=== PATIENT | female | born 1955 | race Caucasian/White ===

== ENCOUNTER 2016-06-07 10:19 | Inpatient (IN) | payer OTHER ==
[2016-06-07] VITALS (18 sets, daily range): BP systolic 80–152; BP diastolic 48–79
[~2016-06-07] VITALS: Ht 175.3 cm; Wt 97.5 kg
[~2016-06-07 10:19] MED LIST: ATROPINE 0.5 MG/5 ML DISP.SYRIN. ONE; HEPARIN for IV BOLUS 10,000 UNIT/10 ML VIAL. ONE; IOHEXOL 300 MG/ML 100ML VIAL. ONE; LIDOCAINE 2% 20 ML VIAL. ONE; MIDAZOLAM HCL/PF 2 MG/2 ML VIAL. ONE; NITROGLYCERIN 200 MCG/2 ML SYRINGE FOR CATH/VASC LAB. ONE; VERAPAMIL 5 MG/2 ML VIAL. ONE; fentaNYL PF VIAL 100 MCG/2 ML VIAL ONE
[2016-06-07] MEDS ORDERED: TIROFIBAN IV ONE (11:00)
[2016-06-07] MEDS ORDERED: SODIUM CHLORIDE 5 MG/100 ML IV ONE (11:00)
[2016-06-07] MEDS ORDERED: TIROFIBAN 5MG -0.9% NS 100 ML IV ONE (11:08)
[2016-06-07] MEDS ORDERED: ONDANSETRON PF 4 MG/2 ML VIAL. ONE (11:29)
[2016-06-07] MEDS ORDERED: PRASUGREL 10 MG TABLET. ONE (11:42)
[2016-06-07] MEDS ORDERED: IOHEXOL 300 MG/ML 100ML VIAL. IART ONE (11:45)
[2016-06-07] MEDS ORDERED: fentaNYL PF VIAL 100 MCG/2 ML VIAL IV ONE (11:45)
[2016-06-07] MEDS ORDERED: ONDANSETRON PF 4 MG/2 ML VIAL. IV ONE (11:45)
[2016-06-07] MEDS ORDERED: HEPARIN for IV BOLUS 10,000 UNIT/10 ML VIAL. IART ONE (11:45)
[2016-06-07] MEDS ORDERED: CONTRAST GIVEN MC PRN (11:45)
[2016-06-07] MEDS ORDERED: LIDOCAINE 2% 20 ML VIAL. IJ ONE (11:45)
[2016-06-07] MEDS ORDERED: NITROGLYCERIN 200 MCG/2 ML SYRINGE FOR CATH/VASC LAB. IART ONE (11:45)
[2016-06-07] MEDS ORDERED: PRASUGREL 10 MG TABLET. PO ONE (11:45)
[2016-06-07] MEDS ORDERED: TIROFIBAN 12.5MG -0.9% NS 250 ML IV PRN (11:45)
[2016-06-07] MEDS ORDERED: MIDAZOLAM HCL/PF 2 MG/2 ML VIAL. IV ONE (11:45)
[2016-06-07] MEDS ORDERED: VERAPAMIL 5 MG/2 ML VIAL. IART ONE (11:45)
[2016-06-07] MEDS ORDERED: HEPARIN for IV BOLUS 10,000 UNIT/10 ML VIAL. IV ONE (11:45)
[2016-06-07] MEDS ORDERED: ESCI20TA10 PO (12:41)
[2016-06-07] MEDS ORDERED: ALPR2TAB PO (12:41)
[2016-06-07] MEDS ORDERED: ISOS60TA2 PO (12:41)
[2016-06-07] MEDS ORDERED: ESTR0.5T PO (12:41)
[2016-06-07] MEDS ORDERED: QUET50TA5 PO (12:41)
--- NOTE | 2016-06-07 15:11 | PDOC1 ---
History and Physical Date of Admission Date of Admission 06/07/16 Identification/Chief Complaint Chief Complaint CHEST Pain, throat pain Problems: Source Source: Chart review, Patient History of Present Illness History of Present Illness 60yo F, smoker, was sent from [facility] for STEMI. Pt started to feel intermittent chest pain in the past week, worsening today, as upper chest pain, radiating to bl jaws, with nausea, diaphoresis,sob. In [place] , ekg SHOWED ST elevation at II, III, AVR. sent her her. Pt got emergency Cath, official report pending, as per ICU nurse, pt got 1 stent at OM. pT FEELs ok now, no chest pain. mild cough as her baseline for COPD. on dopamine now with hypotension, could 2/2 nitro drip at the beginning. Past Medical History Pulmonary: COPD Past Surgical History Past Surgical History: No pertinent history Family History Family History: No Significant Social History Smoke: 1 pack per day ALCOHOL: social Drugs: None Current Problem List Problem List Problems Medical Problems: (1) STEMI (ST elevation myocardial infarction) Status: Acute Current Medications Current Medications Current Medications Medications (Trade) Dose Ordered Sig/Lisa Start Time Stop Time Status Last Admin Dose Admin Fentanyl Citrate (Fentanyl 2ml Vial) 25 mcg 1X ONCE 06/07/16 11:45 06/07/16 11:46 DC 06/07/16 11:45 25 MCG Heparin Sodium (Porcine) (Heparin Sodium) 5,000 unit 1X ONCE 06/07/16 11:45 06/07/16 11:46 DC 06/07/16 11:45 5,000 UNIT Heparin Sodium/ Sodium Chloride 1,000 unit 1X ONCE 06/07/16 11:45 06/07/16 11:46 DC 06/07/16 11:45 1,000 UNIT Info (Do NOT chart on this entry -- for MONITORING) 1 each PRN DAILY PRN 06/07/16 11:45 06/09/16 11:44 Iohexol (Omnipaque 300 Mg/ml) 100 ml 1X ONCE 06/07/16 11:45 06/07/16 11:46 DC 06/07/16 11:45 164 ML Lidocaine HCl 20 ml 20 ml 1X ONCE 06/07/16 11:45 06/07/16 11:46 DC 06/07/16 11:45 1 ML Midazolam HCl (Versed) 1 mg 1X ONCE 06/07/16 11:45 06/07/16 11:46 DC 06/07/16 11:45 1 MG Nitroglycerin (Nitroglycerin) 400 mcg 1X ONCE 06/07/16 11:45 06/07/16 11:46 DC 06/07/16 11:45 400 MCG Ondansetron HCl (Zofran) 4 mg 1X ONCE 06/07/16 11:45 06/07/16 11:46 DC 06/07/16 11:45 4 MG Prasugrel (Effient) 60 mg 1X ONCE 06/07/16 11:45 06/07/16 11:46 DC 06/07/16 11:45 60 MG Tirofiban/Sodium Chloride (Aggrastat 12.5 Mg/250 ml Premix) 250 ml @ 0 mls/hr CONT PRN 06/07/16 11:45 06/08/16 05:44 06/07/16 11:13 500 MLS/HR Verapamil HCl (Verapamil) 2.5 mg 1X ONCE 06/07/16 11:45 06/07/16 11:46 DC 06/07/16 11:45 2.5 MG Allergies Allergies Allergies Coded Allergies Type Severity Reaction Last Updated Verified No Known Drug Allergies 06/07/16 No ROS Review of System CONSTITUTIONAL: No fever or chills EYES: No recent changes SKIN: No rash or itching CARDIOVASCULAR: No chest pain, syncope, palpitations, or edema RESPIRATORY: No SOB or cough GASTROINTESTINAL: No nausea, vomiting or abdominal pain NEUROLOGICAL: No headaches or weakness ENDOCRINE: No cold or heat intolerance GENITOURINARY: No urgency or frequency of urination MUSCULOSKELETAL: No back pain or joint pain LYMPHATICS: No enlarged lymph nodes PSYCHIATRIC: No anxiety or depression Physical Exam Physical Exam GEN.: No apparent distress. Alert and oriented. HEENT: Head is normocephalic, atraumatic NECK: Supple. LUNGS: bl mild decreased BS. HEART: RRR, S1, S2 present. Peripheral pulses intact ABDOMEN: Soft, nontender. Positive bowel sounds. EXTREMITIES: Without any cyanosis. NEUROLOGIC: Normal speech, normal tone PSYCHIATRIC: Normal affect, normal mood. SKIN: No ulcerations Vitals Vitals Vital Signs Date Time Temp Pulse Resp B/P Pulse Ox O2 Delivery O2 Flow Rate FiO2 06/07/16 14:30 70 20 97/58 97 Nasal Cannula 4.0 5/1/17 12:15 97.6 97.6 VTE Prophylaxis Ordered VTE Prophylaxis Devices: Yes VTE Pharmacological Prophylaxi: Yes Assessment/Plan Assessment/Plan 1. STEMI, post PCI on 06/07 with 1 STENT in OM 2. copd, stable 3. depression, anxiety 4. tobaccoism plan check tsh, lipid panel fu with card taper dopamine, keep MAP>65 add asa, likely need plavix, defer to card albuterol prn cont [facility] meds icu care for today ABDELRAHMAN HANLEY MD June 07, 2016 15:11
[2016-06-07] MEDS ORDERED: ONDANSETRON PF 4 MG/2 ML VIAL. IV PRN (15:15)
[2016-06-07] MEDS ORDERED: MORPHINE SULFATE 2 MG/ML DISP.SYRIN. IV PRN (15:15)
[2016-06-07] MEDS ORDERED: ACETAMINOPHEN 325 MG TABLET. PO PRN (15:15)
[2016-06-07] MEDS ORDERED: HYDROCODONE/APAP 5/325MG TABLET. PO PRN (15:15)
[2016-06-07] MEDS ORDERED: ALBUTEROL SULFATE 2.5 MG/3 ML NEBU. NEB PRN (15:15)
--- NOTE | 2016-06-07 16:42 | CARD ---
APPROVED REPORT Procedure(s) performed: Right transradial approach Left Heart Catheterization PTCA with Stenting To Circumflex Ptca OM HISTORY The patient is a 60 year-old female with a history of : chronic lung disease, tobacco history() : The patient is a current smoker. INDICATION The indication(s) include : STEMI (>12 hrs to = 24 hrs), 60 y.o woman presented to an OSH with angina , noted to have ODILON on EKG and STEMI protocol activated. . CASE TECHNIQUE During this case, Fluoroscopy and low osmolar contrast were used for imaging. PROCEDURE NARRATIVE The patient was brought electively to the cardiac catheterization lab. A timeout was performed confi rming the patient's name, date of , procedure, and site of procedure. All necessary personnel w ere wearing the appropriate protective equipment and radiation monitor devices. After explaining the risks and benefits of the procedure and alternatives, informed verbal consent was obtained. (See kristy gonzalez notes for medications administered). The right wrist was sterilely prepped and draped in the us ual fashion. The right wrist was infiltrated with 1 mL of 2% lidocaine for subcutaneous anesthesia. A 6 Lao Terumo glide sheath was inserted into the right radial artery without difficulty. Right and left coronary angiography was performed using a 6Fr TIG 4.0 catheter. HEMODYNAMICS: LVEDP 18 mm Hg No gradient on LV to aortic pullback. LEFT VENTRICULOGRAM: EF 55% Anterobasal: Normal. Anterolateral: Normal Apical: Normal Diaphragmatic: Moderate hypokines. Posterobasal: Moderate hypokinesis. CORONARY ANGIOGRAPHY: LM is a large caliber vessel with normal angiographic appearance. LAD is a large caliber vessel with normal angiographic appearance. D1 is a moderate caliber vessel with normal angiographic apeparance. LCx is a moderate caliber co-dominant vessel with a mid occlusion at the site of OM2. OM1 is a moderate caliber vessel with mild luminal irregularities. OM2 is a small to moderate caliber vessel with mild luminal irregularities. RCA is a large caliber co-dominant vessel with mild diffuse irregularities of up to 40% RPDA is a small caliber vessels with normal angiographic appearance. INTERVENTIONAL TECHNIQUE: Based on the presenting symptoms, angiographic findings and EKG changes, an intervention was performe d. Through a 6Fr EBU 3.5 guide catheter, a 0.014'' Prowater wire was advanced to the distal LCx. Ball oon angioplasty was performed with a Trek 2.5/15 mm balloon. Subsequently, a second wire was placed i n the OM2 to protect this vessel from plaque shift. Repeat angioplasty was performed with a Trek 3.0/ 15 mm balloon. Finally, the lesion was stented with a Trek 3.0/28 vision BMS at 14 marcos. The proximal half of the stent was post-dilated with a Trek 3.25mm NC balloon at 16 marcos. Final angiography reveale d excellent stent expansion with OSEAS 3 flow. Left ventricular end diastolic pressure was obtained wi th a pigtail catheter and pullback was performed after left ventriculography. All catheter exchanges and advancements were performed over a guidewire. At case completion the right radial sheath was re moved and a Terumo radial band was applied with 13 ml of air. The patient tolerated the procedure we ll and there were no immediate complications. The patient received Prasugrel 60mg at case completion. Conclusion 1. Infero-posterior STEMI 2. Successful primary PCI of the LCx with implantation of a Vision 3.0/28 mm bare metal stent, post-d ilated to a 3.25mm size proximally in the LCx. 3. Normal LV funtion. EF 55% Recommendations ASA 81mg daily Prasugrel 10mg daily for 1 full month, consider DAPT for 1 full year if tolerated. Cardiac rehab referral High dose statin. Risk factor modification.
[2016-06-07] MEDS ORDERED: LIDO:MAALOX:DONNATAL 1:1:1 15 ML SINGLE DOSE SWSW PRN (17:15)
--- NOTE | 2016-06-07 19:37 | EKG ---
[facility] [address] [place] [address] Test Date: 2016-06-07 Test Time: 19:37:29 Pat Name: BAILEY HERCULES Department: Room: 115 1 Gender: F [employer]: [place] : 1955 Requested By: DMITRY HORVATH Order Number: [id number] Reading MD: Ivania Sierra Measurements Intervals [place] Rate: 88 P: 53 NM: 138 QRS: -46 QRSD: 94 T: -12 QT: 374 QTc: 456 Interpretive Statements SINUS RHYTHM ABNORMAL LEFT AXIS DEVIATION LOW LIMB LEAD VOLTAGE ABNORMAL ECG RI6.01 No previous ECG available for comparison Electronically Signed On 06-08-2016 12:18:19 CDT by Ivania Sierra
[2016-06-07] MEDS: ALPRAZolam 1 MG TABLET PO SCH (20:54)
[2016-06-07] MEDS ORDERED: ESCITALOPRAM 10 MG TABLET. PO SCH (21:00)
[2016-06-07] MEDS ORDERED: QUEtiapine 25 MG TABLET. PO SCH (21:00)
[2016-06-08] VITALS (11 sets, daily range): BP systolic 96–143; BP diastolic 50–85
--- NOTE | 2016-06-08 04:58 | ACF ---
Admission Forms Criteria INTENSIVE CARE UNIT ADMISSION Intensive Care Admission Guidelines ( Place 'X' for any and all applicable criteria): Admission to ICU may be indicated when need is demonstrated by ANY ONE of the following (1)(2)(3)(4)(5)(6)(7)(8)(9) : [X]I. Vital sign abnormalities, including ANY ONE of the following: [ ]a) Systolic arterial pressure less than 90 mm Hg, or 20 mm Hg below the patient's usual pressure [ ]b) Diastolic arterial pressure greater than 120 mm Hg [X]c) Mean arterial pressure less than 70 mm Hg [A] [ ]d) Pulse less than 40 or greater than 140 beats per minute (in adult) [ ]e) Respiratory rate greater than 35 or less than 8 breaths per minute [ ]II. Laboratory findings (new), including ANY ONE of the following (10): [ ]a) Saturation of arterial oxygen less than 88% or partial pressure of oxygen less than 60 mm Hg (8.0 kPa) despite oxygen supplementation [ ]b) Rising partial pressure of carbon dioxide with respiratory acidosis [ ]c) pH less than 7.2 or greater than 7.65 [ ]d) Serum glucose greater than 800 mg/dL (44.4 mmol/L) [ ]e) Serum sodium less than 110 mEq/L (mmol/L) or greater than 160 mEq/L (mmol/L) [ ]f) Serum potassium less than 2 mEq/L (mmol/L) or greater than 7 mEq /L (mmol/L) [ ]g) Serum calcium greater than 15 mg/dL (3.75 mmol/L) [ ]h) Serum phosphorus less than 1 mg/dL (0.32 mmol/L) [ ]i) Toxic drug level or poisoning causing or likely to cause neurologic or Hemodynamic instability [ ]j) Less severe laboratory abnormalities contributing to ANY ONE of the following: [ ]i) Seizure [ ]ii) Altered mental status [ ]iii) Muscle weakness [ ]iv) Arrhythmias [ ]v) Hemodynamic instability [ ]vi) Other significant clinical manifestations [ ]III. Electrocardiogram (or cardiac monitoring) findings, including ANY ONE of the following: [ ]a) Inherently unstable or life-threatening arrhythmia (eg, sustained ventricular tachycardia, ventricular fibrillation, asystole) [ ]b) Arrhythmia causing severe hypotension (eg, bradycardia, tachycardia) [ ]c) Complete heart block causing severe hypotension [ ]d) Other findings indicative of a need for intensive care (eg , CO) [ ]IV.Physical findings, including ANY ONE of the following: [ ]a) Threatened airway [ ]b) Sudden altered mental status [ ]c) Repeated or prolonged seizures [ ]d) Coma [ ]e) New-onset anuria (urine output <0.1 mL/kg/hr over 4 h) [ ]f) Cyanosis (new) [ ]g) Cardiac tamponade [ ]h) Status post respiratory or cardiac arrest [ ]i) Severe haines (eg, partial thickness haines over more than 10% of body surface, third-degree haines) [ ]j) Findings consistent with abdominal emergency (eg, peritoneal signs) [ ]V.Imaging findings, such as dissecting aneurysm or ruptured viscus [ ].Specific intervention or monitoring needed, as indicated by ANY ONE of the following: [ ]a) New need for assisted ventilation, invasive or noninvasive(11) [ ]b) New need for intubation (eg, to protect airway) [ ]c) New tracheostomy (less than 48 hours old) [ ]d) Hourly vital signs or neurologic checks [ ]e) Pulmonary artery line monitoring needed [ ]f) Continuous arterial line monitoring needed [ ]g) Continuous IV vasoactive drugs [ ]h) Continuous IV antiarrhythmics [ ]i) Large volume IV fluid resuscitation (eg, greater than 6 L per day ) [ ]j) Large or rapid transfusion needs (eg, more than 6 units within 24 hours) [ ]k) High-risk IV treatment, such as bolus IV medicatns or mannitol infusion [ ]l) Acute cardiac pacing [ ]m) Intra-aortic balloon pump [ ]n) Ventricular assist device [ ]o) Cardioversion [ ]p) Pericardiocentesis [ ]q) Hemodialysis in unstable patient [ ]r) Continuous renal replacement therapy (eg, continuous veno-venous hemofiltration) [ ]s) Peritoneal dialysis initiation [ ]t) Emergency bronchoscopic therapy (eg, for hemoptysis) [ ]u) Emergency endoscopic therapy for bleeding [ ]v) Balloon tamponade for variceal bleeding [ ]w) Intracranial pressure monitoring or tissue oxygen monitoring [ ]x) Ventriculostomy monitoring [ ]y) Treatment of ongoing seizures [ ]z) Induced hypothermia or coma [ ]aa) Ongoing frequent testing and treatment for acute conditions, including ANY ONE of the following: [ ]i) Correction of severe metabolic acidosis/ alkalosis [ ]ii). Severe fluid overload [ ]iii) Cerebral edema [ ]iv) Monitoring or suctioning for respiratory insufficiency or acidosis [ ]v) Monitoring for active bleeding [ ]bb) Rapid desensitization for high-risk hypersensitivity reaction to required medication (eg, penicillin)(12) [ ]cc) Other need for treatment or monitoring not available outside the ICU [ ]VII.Cardiology diagnoses or procedures, including ANY ONE of the following (13)(14)(15)(16)(17): [ ]a) Chest pain with ANY ONE of the following: [ ]i) Hemodynamic instability [ ]ii) Suspicion of diagnoses needing ICU care (eg, aortic dissection) [ ]iii) New unstable or symptomatic arrhythmia or ECG finding (eg, ventricular tachycardia, ventricular fibrillation, advanced heart block) [ ]iv) Syncope or near-syncope [ ]v) SBP less than 100 mm Hg [ ]vi) Pulmonary edema thought to be due to ischemia [ ]vii) New or worsening mitral regurgitation murmur, S3 , or rales [ ]b) Acute CO with complications as indicated by ANY ONE of the following: [ ]i) Persistent chest pain [ ]ii) Hemodynamic instability [ ]iii) New unstable or symptomatic arrhythmia or ECG finding (eg, ventricular tachycardia, ventricular fibrillation, advanced heart block) [ ]iv) Syncope or near-syncope [ ]v) Pulmonary edema thought to be due to ischemia [ ]vi) New or worsening mitral regurgitation murmur, S3 , or rales [ ]vii) New-onset bundle branch block [ ]viii) Hemorrhagic complication (eg, intracranial or access site bleed following thrombolysis) [ ]c) Cardiac arrhythmia or conduction defect with Hemodynamic instability [ ]d) Complication of cardiac ablation, including ANY ONE of the following(18): [ ]i) Pericardial tamponade [ ]ii) Hemodynamic instability [ ]iii) Thromboembolic stroke [ ]iv) Aortic valve injury [ ]v) Vascular injuries [ ]vi) Esophageal perforation [ ]vii) Severe arrhythmia [ ]viii) Air embolism [ ]ix) Other severe complication [ ]e) Cardiogenic shock [ ]f) Hypertensive emergency, with need for ANY ONE of the following(19): [ ]i) IV antihypertensive therapy [ ]ii) Invasive hemodynamic monitoring (eg, arterial line) [ ]g) Pericardial tamponade [ ]h) Severe heart failure, with ANY ONE of the following(15): [ ]i) Respiratory failure [ ]ii) Cardiogenic shock [ ]iii) Severe arrhythmias [ ]iv) Evidence of cardiac ischemia [ ]i Myocarditis, with ANY ONE of the following [ ]i) Hemodynamic instability [ ]ii) Respiratory failure [ ]iii) Severe arrhythmias [ ]iv) Need for cardiac assist device (eg, left ventricular assist device or extracorporeal membrane oxygenator) [ ]j) Status post cardiac arrest(20) [ ]VIII. Cardiovascular Surgery diagnoses or procedures, including ANY ONE of the following.(21)(22): [ ]a) Acute aortic dissection [ ]b) Aortic surgery for ANY ONE of the following: [ ]i) Thoracic aneurysm [ ]ii) Abdominal aneurysm with ANY ONE of the following(23): [ ]1) Emergency repair [ ]2) Severe cardiopulmonary disease [ ]3) Dialysis-dependent renal failure [ ]4) Need for IV blood pressure control [ ]5) Need for ongoing ventilatory support [ ]6) Perioperative complications, including ANY ONE of the following: [ ]A. Sustained Hemodynamic instability [ ]B. Cardiac ischemia or arrhythmia [ ]C. Hypothermia (less than 35 degrees C (95 degrees F)) [ ]D. Blood transfusion greater than 3 L [ ]iii) Aortic coarctation operative excision or repair [ ]iv) Aortofemoral or aortoiliac bypass with ANY ONE of the following: [ ]1) Continued intubation [ ]2) Hemodynamic instability [ ]3) Need for IV blood pressure control [ ]4) Severe cardiopulmonary disease [ ]c) Cardiac surgery [ ]d) Carotid endarterectomy or stent placement with ANY ONE of the following: [ ]i) Blood pressure <100/60 mm Hg or >160/90 mm Hg despite 4 h of postanesthetic management [ ]ii) New or progressive neurologic defect [ ]iii) Chest pain [ ]iv) Continued intubation [ ]v) Heart failure [ ]vi) Airway compromise by hematoma or vocal cord paralysis [ ]vi) Need for IV blood pressure control [ ]e) Heart transplant [ ]f) Infrainguinal peripheral vascular surgery with ANY ONE of the following: [ ]i) Hemodynamic instability [ ]ii) Acute complications such as persistent chest pain or respiratory distress [ ]iii) Requirement for IV antiarrhythmic or vasoactive agent [ ]iv) Requirement for pulmonary artery catheter [ ]v) Severe hypertension despite 6 hours of recovery room management [ ]g) Complications of any surgery requiring ICU intervention as indicated by ANY ONE of the following(24): [ ]i) Hemodynamic instability [ ]ii) Myocardial infarction with complications (eg, severe arrhythmia, hypotension) [ ]iii) Excessive bleeding or severe coagulopathy [ ]iv) Respiratory failure [ ]v) Renal failure [ ]vi) Airway instability or obstruction [ ]vii) Neurologic deterioration [ ]viii) Infection with likelihood of sepsis syndrome or significant fluid shifts [ ]IX.Endocrinology diagnoses or procedures, including ANY ONE of the following(25)(26): [ ]a) Adrenal crisis with Hemodynamic instability(27) [ ]b) Pheochromocytoma with ANY ONE of the following(28): [ ]i) Hypertensive crisis [ ]ii) Postoperative Hemodynamic instability [ ]iii) Need for IV vasoactive therapy [ ]iv) Need for invasive arterial or central venous pressure monitoring [ ]v) Organ ischemia [ ]c) Diabetic hyperosmolar state with obtundation or coma [ ]d) Diabetic ketoacidosis with ANY ONE of the following: [ ]i) Serum pH less than 7.10 or bicarbonate level less than 10 mEq/L (mmol/L) [ ]ii) Rapidly changing electrolytes [ ]iii) Hypotension [ ]iv) Requirement for large-volume fluid resuscitation [ ]v) Respiratory insufficiency [ ]vi) Life-threatening cardiac dysrhythmias [ ]vii) Obtundation [ ]viii) Severe precipitating condition such as sepsis, stroke, or acute CO [ ]e) Severe hypoglycemia requiring continuous glucose infusion with frequent adjustment or glucagon infusion [ ]f) Hyperthyroidism associated with thyroid storm (also known as thyrotoxic crisis)(29) [ ]g) Myxedema with life-threatening neurologic, cardiovascular, electrolyte, or renal dysfunction(29) [ ]h) Diabetes insipidus that cannot be controlled with routine medication (30) [ ]X. Gastroenterology diagnoses or procedures, including ANY ONE of the following: [ ]a) Esophageal perforation(31) [ ]b) Severe caustic esophageal injury(31) [ ]c) Liver disease complications with ANY ONE of the following(32): [ ]i) Severe hepatic encephalopathy (eg, stage 3 (somnolent) or higher) [ ]ii) Type 1 hepatorenal syndrome [ ]iii) Other cirrhosis-associated causes of acute renal failure ( eg, severe hypovolemia, acute tubular necrosis, abdominal compartment syndrome) [ ]iv) Hemodynamic instability [ ]v) Respiratory insufficiency due to severe ascites [ ]vi) Sepsis due to spontaneous bacterial peritonitis [ ]d) Fulminant hepatic failure when aggressive intervention or transplant is anticipated (32) [ ]e) Gastrointestinal hemorrhage (upper or lower) with ANY ONE of the following(33)(34): [ ]i) Active ongoing bleeding [ ]ii) Transfusion requirement greater than 2 units of packed red cells [ ]iii) Bleeding ulcer or nonbleeding visible vessel seen on endoscopy [ ]iv) Bleeding ulcer, visible blood vessel, bleeding (or recently bleeding) esophageal varices seen on endoscopy [ ]v) Hypotension [ ]vi) Syncope [ ]vii) Coagulopathy [ ]viii) Hepatic cirrhosis [ ]ix) Abnormal mental status [ ]x) Unstable comorbid condition or end organ dysfunction [ ]xi) Ischemia due to poor perfusion [ ]xii) Need for hemodynamic monitoring (eg, for patients with heart failure or valvular disease) [ ]f) Severe pancreatitis indicated by ANY ONE of the following (35)(36): [ ]i) Requirement for aggressive fluid resuscitation [ ]ii) Life-threatening electrolyte abnormality [ ]iii) SBP less than 90 mm Hg [ ]iv) Persistent tachycardia greater than 120 beats per minute [ ]v) Patients at high risk of rapid deterioration, including ANY ONE of the following: [ ]1) Calculated [place] II score greater than 8 [ ]2) Age older than 55 years [ ]3) BMI greater than 30 [ ]4) Greater than 30% pancreatic necrosis on CT scan [ ]5) Admission hematocrit greater than 47% (0.47) [ ]vi) Organ failure as indicated by ANY ONE of the following: [ ]1) Serum creatinine greater than 1.9 mg/dL (168 micromoles/L) [ ]2) Requirement for mechanical ventilation [ ]3) Urine output less than 50 mL/hour [ ]4) Arterial partial pressure of oxygen less than 60 mm Hg (8.0 kPa) despite supplemental oxygen [ ]5) PiO2/FiO2 ratio less than 300 [ ]vii) Expanding pseudocyst [ ]viii) Infected pancreas [ ]ix) Pleural effusion [ ]x) Encephalopathy [ ]xi) Severe comorbidities [ ]XI. General Surgery diagnoses or procedures, including ANY ONE of the following (9)(24)(37): [ ]a) Acute abdominal catastrophe (eg, ischemic bowel, perforated viscus, abdominal compartment syndrome) [ ]b) Complications of any surgery requiring ICU intervention as indicated by ANY ONE of the following: [ ]i) Hemodynamic instability [ ]ii) CO with complications (eg, severe arrhythmia, hypotension) [ ]iii) Excessive bleeding or severe coagulopathy [ ]iv) Respiratory failure [ ]v) Renal failure [ ]vi) Airway instability or obstruction [ ]vii) Neurologic deterioration [ ]viii) Infection with likelihood of sepsis syndrome or significant fluid shifts [ ]c) Multiple trauma with complicating features as indicated by ANY ONE of the following(38): [ ]i) Impending acute respiratory failure due to lung contusion, unstable chest wall, aspiration, or hemorrhage [ ]ii) Facial or neck injury threatening airway patency [ ]iii) Cardiac contusion [ ]iv) Pericardial effusion [ ]v) Bronchial tear [ ]vi) Hemodynamic instability [ ]vii) Rhabdomyolisis requiring large volume IV fluid resuscitation [ ]viii)Other significant complicating feature [ ]d) Organ transplant(39)(40) [ ]e) Esophagectomy(31) [ ]f) Whipple procedure [ ]g) Preoperative or postoperative patients requiring ICU intervention, such as hemodynamic optimization, pulmonary artery monitoring, mechanical ventilation, or extensive nursing care [ ]h) Obesity surgery patients with ANY ONE of the following(41): [ ]i) ICU management needs for comorbid conditions, such as sleep apnea or airway management needs [ ]ii) Failed postoperative extubation [ ]iii) Intraoperative complications [ ]XII. Nephrology diagnoses or procedures, including acute, or acute on chronic renal insufficiency with ANY ONE of the following(44)(45): [ ]a) Life-threatening electrolyte or acid-base disorder [ ]b) Acute pulmonary edema [ ]c) Hypotension or significant volume depletion [ ]d) Hypertensive emergency [ ]e) Underlying critical illness contributing to renal failure (eg, septic shock, hepatorenal syndrome) [ ]f) Need for continuous renal replacement therapy [ ]XIII. Neurology diagnoses or procedures, including ANY ONE of the following (46)(47) [B] : [ ]a) Intracranial hypertension requiring ANY ONE of the following(49 ): [ ]i) Induced barbiturate coma [ ]ii) Pharmacologic paralysis or deep sedation and mechanical ventilation [ ]iii) Intracranial pressure or cerebral perfusion pressure monitoring [ ]iv) IV mannitol or hypertonic saline [ ]v) Frequent serum osmolality measurements [ ]b) Seizures with ANY ONE of the following(50): [ ]i) Status epilepticus [ ]ii) Airway compromise requiring or likely to require mechanical ventilation [ ]iii) Severe electrolyte abnormalities causing seizures [ ]c) Progressive acute neurologic dysfunction requiring or likely to require ANY ONE of the following: [ ]i) Mechanical ventilation [ ]ii) Intracranial pressure or cerebral perfusion pressure monitoring [ ]d) Meningitis with obtundation or respiratory insufficiency [C])(51 ) [ ]e) Stroke with ANY ONE of the following(52)(53): [ ]i) Need for observation after thrombolysis [ ]ii) Altered mental status [ ]iii) Need for mechanical ventilation [ ]iv) Elevated intracranial pressure [ ]v) Hypertensive emergency [ ]vi) High risk of progressive infarction or deterioration based on CT scan or MRI [ ]vii) Hemorrhage [ ]f) Acute coma [ ]g) Acute spontaneous intracranial hemorrhage(53)(54) [ ]h) Drug ingestion with ANY ONE of the following(56)(57): [ ]i) Hemodynamic instability [ ]ii) Respiratory depression (partial pressure of carbon dioxide >45 mm Hg (6.0 kPa), new) [ ]iii) Patient requires or is likely to require mechanical ventilation. [ ]iv) Arrhythmias [ ]v) Seizures [ ]vi) Altered mental status ([place] coma scale score less than 12, new) [ ]vii) Significant risk for acute deterioration (eg, toxic level of hypotension or arrhythmia-producing drug) [ ]viii) Drug-induced hypothermia or hyperthermia [ ]ix) Increasing metabolic acidosis [ ]x) Severe hypoglycemia requiring glucose infusion with frequent adjustment or glucagon administration [ ]xi) Ongoing antidote administration (eg, continuous naloxone infusion, organophosphate toxicity treatment) [ ]xii) Emergency intervention need (eg, dialysis, hemoperfusion, restraints) [ ]i) Brain with preparation for organ donation [ ]j) Traumatic brain injury with ANY ONE of the following(55): [ ]i) Altered mental status (eg, new onset [place] coma scale score less than 10) [ ]ii) Cerebral edema [ ]iii) Cerebral hemorrhage [ ]iv) Increased intracranial pressure [ ]XIV. Neurosurgery diagnoses or procedures, including ANY ONE of the following(49)(58)(59): [ ]a) Emergency craniotomy for tumor, hematoma, or trauma [ ]b) Elective craniotomy for posterior fossa tumor [ ]c) Elective craniotomy (supratentorial) for tumor with ANY ONE of the following: [ ]i) Postoperative neurologic deficit or impaired consciousness 6 hours after completion of procedure [ ]ii) SBP less than 110 mm Hg or greater than 180 mm Hg despite therapy [ ]iii) Extensive operative blood loss [ ]iv) High anesthesia risk (eg, [place] [employer] score greater than 3 [ ]d) Craniotomy for aneurysm with ANY ONE of the following: [ ]i) Postoperative neurologic deficit or impaired consciousness 6 hours after completion of procedure [ ]ii) Preoperative [place] grade 3 or higher [ ]iii) SBP less than 110 mm Hg or greater than 180 mm Hg despite therapy [ ]iv) Intracranial pressure monitoring [ ]e) Acute spinal cord injury [ ]f) Subarachnoid hemorrhage [ ]g) Traumatic brain injury with ANY ONE of the following: [ ]i) Acute mental status change ([place] coma scale score less than 10) [ ]ii) CT scan showing cerebral edema or hemorrhage [ ]iii) Intracranial pressure monitoring [ ]h) Complications of any surgery requiring ICU intervention as indicated by ANY ONE of the following(60): [ ]i) Hemodynamic instability [ ]ii) CO with complications (eg, severe arrhythmia, hypotension) [ ]iii) Excessive bleeding or severe coagulopathy [ ]iv) Respiratory failure [ ] v) Renal failure [ ]vi) Airway instability or obstruction [ ]vii) Neurologic deterioration [ ]viii) Infection with likelihood of sepsis syndrome or significant fluid shifts [ ]i) Preoperative or postoperative patients requiring ICU intervention, such as hemodynamic optimization, pulmonary artery monitoring, mechanical ventilation, or extensive nursing care [ ]XV.Obstetrics and Gynecology diagnoses or procedures, including ANY ONE of the ffg. (61)(62)(63): [ ]a) Severe peripartum condition as indicated by ANY ONE of the following: [ ]i) Eclampsia [ ]ii) Hypertensive emergency [ ]iii) HELLP syndrome (hemolysis, elevated liver enzymes, and low platelet count) [ ]iv) Pulmonary edema [ ]v) Respiratory failure [ ]vi) Pulmonary embolism [ ]vii) Anaphylactoid syndrome of (amniotic fluid embolus) [ ]viii) Ovarian hyperstimulation syndrome [D] [ ]ix) Acute fatty liver of (hepatic failure) [ ]x) Complications such as placental abruption or severe hemorrhage [ ]xi) Sepsis (eg, puerperal sepsis, chorioamnionitis, septic ) [ ]xii) cardiomyopathy with severe congestive heart failure (eg, respiratory failure, cardiogenic shock) [ ]b) Ruptured ectopic [ ]c) Complications of any surgery requiring ICU intervention as indicated by ANY ONE of the following: [ ]i) Hemodynamic instability [ ]ii) CO with complications (eg, severe arrhythmia, hypotension) [ ]iii) Excessive bleeding or severe coagulopathy [ ]iv) Respiratory failure [ ]v) Renal failure [ ]vi) Airway instability or obstruction [ ]vii) Neurologic deterioration [ ]viii) Infection with likelihood of sepsis syndrome or significant fluid shifts [ ]d) Preoperative or postoperative patients requiring ICU intervention , such as hemodynamic optimization, pulmonary artery monitoring, mechanical ventilation, or extensive nursing care [ ]XVI.Ophthalmology diagnoses or procedures, including ANY ONE of the following (64): [ ]a) Complications of any surgery requiring ICU intervention, such as ANY ONE of the following: [ ]i) Hemodynamic instability [ ]ii) CO with complications (eg, severe arrhythmia, hypotension) [ ]iii) Excessive bleeding or severe coagulopathy [ ]iv) Respiratory failure [ ]v) Renal failure [ ]vi) Airway instability or obstruction [ ]vii) Neurologic deterioration [ ]viii) Infection with likelihood of sepsis syndrome or significant fluid shifts [ ]b) Preoperative or postoperative patients requiring ICU intervention , such as hemodynamic optimization, pulmonary artery monitoring, mechanical ventilation, or extensive nursing care [ ]XVII.Orthopedics diagnoses or procedures, including ANY ONE of the following [phone]): [ ]a) Complications of any surgery requiring ICU intervention as indicated by ANY ONE of the following: [ ]i) Hemodynamic instability [ ]ii) CO with complications (eg, severe arrhythmia, hypotension) [ ]iii) Excessive bleeding or severe coagulopathy [ ]iv) Respiratory failure [ ]v) Renal failure [ ]vi) Airway instability or obstruction [ ] vii) Neurologic deterioration [ ]viii) Infection with likelihood of sepsis syndrome or significant fluid shifts [ ]b) Multiple trauma with complicating features as indicated by ANY ONE of the following(38): [ ]i) Impending acute respiratory failure due to lung contusion, unstable chest wall, pneumothorax, aspiration, or hemorrhage [ ]ii) Facial or neck injury threatening airway patency [ ]iii) Cardiac contusion [ ]iv) Rhabdomyolysis requiring large volume IV fluid resuscitation [ ]v) Pericardial effusion [ ]vi) Bronchial tear [ ]vii) Hemodynamic instability [ ]viii) Other significant complicating feature [ ]c) Threatened compartment syndrome [ ]d) Severe haines with ANY ONE of the following(68)(69)(70): [ ]i) Hypotension or requirement for aggressive fluid resuscitation [ ]ii) Respiratory insufficiency with requirement for high- flow oxygen or mechanical ventilation [ ]iii) Carbon monoxide poisoning [ ]iv) Life-threatening cardiac, renal, pulmonary, or neurologic dysfunction [ ]v) High-voltage (eg, 1000 volts or more) electrical burn [ ]vi) Requirement for frequent or intensive debridement and dressing changes; examples include: [ ]1) Partial thickness haines greater than 10% of body surface [ ]2) Haines on face, hands, feet, genitalia, perineum , or major joints [ ]3) Third-degree haines [ ]4) Any burn greater than 15% of body surface area [ ]vii) Inhalation lung injury [ ]viii) Concomitant trauma or other medical condition requiring ICU care [ ]e) Preoperative or postoperative patients requiring ICU intervention , such as hemodynamic optimization, pulmonary artery monitoring, mechanical ventilation, or extensive nursing care [ ]XVIII.Otolaryngology diagnoses or procedures, including ANY ONE of the following (71)(72): [ ]a) Complications of any surgery requiring ICU intervention as indicated by ANY ONE of the following: [ ]i) Hemodynamic instability [ ]ii) CO with complications (eg, severe arrhythmia, hypotension) [ ]iii) Excessive bleeding or severe coagulopathy [ ]iv) Respiratory failure [ ]v) Renal failure [ ]vi) Airway instability or obstruction [ ]vii) Neurologic deterioration [ ]viii) Infection with likelihood of sepsis syndrome or significant fluid shifts [ ]b) Airway or hemodynamic compromise that persists after 3 hours of observation in postanesthesia care unit following nasal, palate (eg, uvulopalatopharyngoplasty or palatoplasty), or tongue surgery for sleep apnea [ ]c) Preoperative or postoperative patient requiring ICU intervention, such as hemodynamic optimization, pulmonary artery monitoring, mechanical ventilation, or extensive nursing care [ ]d) Symptomatic upper airway compromise (eg, laryngeal edema, mass) [ ]e) Other airway-compromising procedure (eg, posterior nasal packing) [ ]XIX.Thoracic Surgery and Pulmonary Disease Diagnosis or procedures, including ANY ONE of the following(6): [ ]a) Asthma with ANY ONE of the following(73)(74): [ ]i) Impending or actual respiratory arrest [ ]ii) Need for mechanical ventilation [ ]iii) Peak expiratory flow rate less than 30% of predicted or personal best [ ]iv) Peak expiratory flow rate or FEV1 less than 40% predicted after 1 hour of initial treatment [ ]v) Acidosis [ ]vi) Persistent or worsening hypoxia after initial treatment [ ]vii) Hypercapnia (eg, partial pressure of carbon dioxide greater than 43 mm Hg (5.7 kPa)) [ ]viii) Severe drowsiness, confusion, or coma [ ]ix) Requiring continuous inhaled bronchodilator [ ]b) COPD with ANY ONE of the following(75): [ ]i) Need for assisted ventilation [ ]ii) Hemodynamic instability [ ]iii) Severe dyspnea unresponsive to initial treatment [ ]iv) Change in level of consciousness [ ]v) Persistent findings despite oxygen and outpatient management, including ANY ONE of the following: [ ]1) Partial pressure of oxygen less than 40 mm Hg ( 5.3 kPa) [ ]2) Partial pressure of carbon dioxide greater than 60 mm Hg (8.0 kPa) [ ]3) pH less than 7.25 [ ]4) Worsening hypoxemia or acidosis [ ]c) Cor pulmonale with ANY ONE of the following(75)(76)(77): [ ]i) Hemodynamic instability [ ]ii) Need for IV inotropic or vasoactive agent [ ]iii) Need for invasive hemodynamic monitoring (eg, central venous, pulmonary artery, or arterial catheter) [ ]iv) Hypoxemia with partial pressure of oxygen less than 40 mm Hg (5.3 kPa) [ ]v) Worsening hypoxemia or acidosis despite oxygen therapy [ ]vi) Need for assisted ventilation [ ]vii) Need for right ventricular assist device [ ]viii) Unstable atrial tachyarrhythmia [ ]ix) Need for inhaled nitric oxide [ ]d) Aspiration pneumonia with ANY ONE of the following(78): [ ]i) Acute respiratory distress syndrome (PaO2/FiO2 ratio of 300 or less) [ ]ii) Impending or actual respiratory arrest [ ]iii) Need for invasive or noninvasive mechanical ventilation [ ]e) Pneumocystis jiroveci pneumonia with ANY ONE of the following(79): [ ]i) Impending or actual respiratory arrest [ ]ii) Hypoxia (eg, PO260 mmGh (8.0 kPa) or less despite oxygen therapy) [ ]iii) Need for invasive or noninvasive mechanical ventilation [ ]f) Pneumonia with ANY ONE of the following(80)(81)(82): [ ]i) Need for invasive or noninvasive assisted ventilation [ ]ii) Hemodynamic instability [ ]iii) Severity factors as indicated by 3 or MORE of the following: [ ]1) Respiratory rate 30 breaths per minute or greater [ ]2) PaO2/FiO2 ratio of 250 or less [ ]3) Multilobed infiltrates [ ]4) Altered mental status [ ]5) BUN 20 mg/dL (7.1 mmol/L) or greater [ ]6) WBC count less than 4000/mm3 (4 x109/L) [ ]7) Platelet count <100,000/mm3 (100 x109/L) [ ]8) Temperature less than 36 degrees C (96.8 degrees F ) [ ]9) Hypotension requiring aggressive fluid resuscitation [ ]g) Pulmonary hypertension requiring initiation of parenteral pulmonary vasodilator or trial of inhaled nitric oxide (eg, need for right heart catheterization)(76) [ ]h) Impending respiratory failure as indicated by ANY ONE of the following: [ ]i) Respiratory rate greater than 30 or partial pressure of oxygen less than 60 mm Hg (8.0 kPa) on 50% oxygen or more [ ]ii) Partial pressure of carbon dioxide greater than 45 mm Hg (6.0 kPa) with pH less than 7.35 [ ]i) Respiratory failure with ANY ONE of the following (47): [ ]i) Need for invasive or noninvasive mechanical ventilation [ ]ii) High likelihood of requiring mechanical ventilation within 24 hours [ ]iii) Observation in the first several hours immediately after extubation from mechanical ventilation [ ]iv) Need for close observation and aggressive therapy, such as suctioning, chest physiotherapy, or inhalation treatments at intervals less than 1 hour [ ]v) Pharmacologic ventilatory paralysis [ ]j) Venous thromboembolism with need for systemic or catheter- directed thrombolysis (eg, for limb-threatening thrombosis, phlegmasia cerulea dolens) (83) [ ]k) Pulmonary embolus with ANY ONE of the following(83): [ ]i) Hypotension [ ]ii) Severe hypoxia [ ]iii) Dangerous arrhythmia [ ]iv) Bleeding [ ]v) Need for systemic or catheter-directed thrombolysis [ ]l) Lobectomy or other major thoracic surgery [ ]m) Lung transplant [ ]n) Symptomatic upper airway obstruction (eg, laryngeal edema, mass) [ ]o) Massive hemoptysis [ ]p) Infection or thrombosis of an intravenous device with ANY ONE of the following(6)(84): [ ]i) Hemodynamic instability [ ]ii) Requirement for frequent hemodynamic measurements [ ]iii) Shock [ ]iv) End organ dysfunction [ ] v) Acute renal failure due to missed dialysis [ ]vi) Unstable acute complication (eg, pericardial tamponade , tension pneumothorax) [ ]q) Traumatic rib fracture or fractures with ANY ONE of the following(85): [ ]i) Injury severity score of 19 or greater [ ]ii) Respiratory insufficiency [ ]iii) Flail chest [ ]iv) Sternum fracture [ ]v) Vascular injury (eg, heart or great vessels) [ ]r) Pleural effusion with ANY ONE of the following(86): [ ]i) Respiratory insufficiency [ ]ii) Hemothorax with active ongoing bleeding [ ]iii) Hemodynamic instability [ ]iv) Unstable comorbid condition (eg, sepsis or heart failure [ ]XX. Urology diagnoses or procedures, including ANY ONE of the following ( 87)(88): [ ]a) Renal transplant [ ]b) Complications of any surgery requiring ICU intervention as indicated by ANY ONE of the following: [ ]i) Hemodynamic instability [ ]ii) CO with complications (eg, severe arrhythmia, hypotension) [ ]iii) Excessive bleeding or severe coagulopathy [ ]iv) Respiratory failure [ ]v) Renal failure [ ]vi) Airway instability or obstruction [ ]vii) Neurologic deterioration [ ]viii) Infection with likelihood of sepsis syndrome or significant fluid shifts [ ]c) Preoperative or postoperative patients requiring ICU intervention , such as hemodynamic optimization, pulmonary artery monitoring, mechanical ventilation , or extensive nursing care [ ]XXI.Infectious Disease diagnoses or procedures, with ANY ONE of the following (6)(43): [ ]a) Hemodynamic instability [ ]b) Shock [ ]c) Requirement for frequent hemodynamic measurements (eg, arterial catheter, pulmonary artery catheter) [ ]d) Sepsis or suspected sepsis with end organ dysfunction (eg, acute kidney injury, acute respiratory distress syndrome) [ ]e) Necrotizing soft tissue infection [ ] XXII.Hematology - Oncology diagnoses or procedures, including chemotherapy administration with ANY ONE of the following(42): [ ]a) Hemodynamic instability [ ]b) Tumor lysis syndrome with ANY ONE of the following : [ ]1) Acute kidney injury [ ]2) Severe electrolyte abnormality [ ]3) Cardiac dysrhythmia [ ]XXIII. Systemic conditions, including ANY ONE of the following: [ ]a) Severe electrolyte or metabolic disturbance causing or likely to cause ANY ONE of the following(10)(89)(90): [ ]i) Life-threatening cardiac dysrhythmia [ ]ii) Respiratory insufficiency [ ]iii) Altered mental status [ ]iv) Seizures [ ]v) Hemodynamic instability [ ]vi) Muscular weakness [ ]b) Environmental injuries such as hypothermia, hyperthermia, electrical injuries, or near drowning(70)(91)(92) The original [email or web address] content created by [email or web address] has been revised. The portions of the content which have been revised are identified through the use of italic text or in bold, and [facility] has neither reviewed nor approved the modified material. All other unmodified content is copyright [email or web address]. Please see references footnoted in the original [facility] edition 2016 Admission Criteria Met?: Yes SERENA THOMAS June 08, 2016 04:58
[2016-06-08 05:44] LABS: BASO # 0.1 x10^3/uL (0.0-0.2); BASO % 1 % (0-3); EOS % 1 % (0-3); HEMOGLOBIN 14.3 g/dL (12.0-15.5); LYMPH # 2.9 x10^3/uL (1.0-4.8); LYMPH % 28 % (24-48); MEAN CORPUSCULAR HEMOGLOBIN 34 pg (25-35); MEAN CORPUSCULAR HGB CONC 35 g/dL (31-37); MEAN CORPUSCULAR VOLUME 96 fL (79-100); MONO % 7 % (0-9); NEUT % 64 % (31-73); PLATELET COUNT 390 x10^3/uL (140-400); RED BLOOD COUNT 4.26 x10^6/uL (3.50-5.40); RED CELL DISTRIBUTION WIDTH 13.8 % (11.5-14.5); WHITE BLOOD COUNT 10.5 x10^3/uL (4.0-11.0)
[2016-06-08 05:52] LABS: CHOLESTEROL/HDL RATIO 6.7
[2016-06-08] MEDS ORDERED: ASPIRIN CHEWABLE 81 MG TABLET. PO SCH (08:00)
[2016-06-08] MEDS: ALPRAZolam 1 MG TABLET PO SCH (08:20)
[2016-06-08] MEDS ORDERED: PRASUGREL 10 MG TABLET. PO SCH (09:00)
[2016-06-08] MEDS ORDERED: METOPROLOL SUCC 24HR ER 25 MG TAB.ER.24H. PO SCH (09:00)
[2016-06-08 09:36] LABS: ALBUMIN 2.8 g/dL (3.4-5.0); ALBUMIN/GLOBULIN RATIO 0.8 (1.0-1.7); CALCIUM 8.1 mg/dL (8.5-10.1); CREATININE 0.8 mg/dL (0.6-1.0); GFR 73.2; POTASSIUM 4.5 mmol/L (3.5-5.1); TOTAL BILIRUBIN 0.3 mg/dL (0.2-1.0); TOTAL PROTEIN 6.3 g/dL (6.4-8.2)
--- NOTE | 2016-06-08 12:59 | PDOC ---
CARDIO Progress Notes Date and Time Date of Service 06/08/2016 Time of Evaluation 1040 Subjective Subjective: No Chest Pain, No shortness of breath, No Palpitations, No Dizziness Vitals Vitals Vital Signs Date Time Temp Pulse Resp B/P Pulse Ox O2 Delivery O2 Flow Rate FiO2 06/08/16 11:01 102 22 109/55 98 Nasal Cannula 2.0 06/08/16 08:21 98.0 98.0 Weight Weight [ ] Input and Output Intake and Output Intake and Output 06/08/16 07:00 Intake Total 1609 ml Output Total 2080 ml Balance -471 ml Intake Oral 500 ml IV Total 90 ml Other 1019 ml Output Urine Total 2080 ml Laboratory Labs Laboratory Tests Test 06/08/16 05:05 06/08/16 05:10 Sodium Level 138mmol/L (136-145) Potassium Level 4.5mmol/L (3.5-5.1) Chloride Level 103mmol/L (98-107) Carbon Dioxide Level 30mmol/L (21-32) Anion Gap 5 (6-14) Blood Urea Nitrogen 11mg/dL (7-20) Creatinine 0.8mg/dL (0.6-1.0) Estimated GFR (Cockcroft-Gault) 73.2 BUN/Creatinine Ratio 14 (6-20) Glucose Level 111mg/dL (70-99) Calcium Level 8.1mg/dL (8.5-10.1) Total Bilirubin 0.3mg/dL (0.2-1.0) Aspartate Amino Transf (AST/SGOT) 184U/L (15-37) Alanine Aminotransferase (ALT/SGPT) 40U/L (14-59) Alkaline Phosphatase 99U/L (46-116) Total Protein 6.3g/dL (6.4-8.2) Albumin 2.8g/dL (3.4-5.0) Albumin/Globulin Ratio 0.8 (1.0-1.7) Triglycerides Level 192mg/dL (0-150) Cholesterol Level 276mg/dL (0-200) LDL Cholesterol, Calculated 197mg/dL (0-100) VLDL Cholesterol, Calculated 38mg/dL (0-40) Non-HDL Cholesterol Calculated 235mg/dL (0-129) HDL Cholesterol 41mg/dL (40-60) Cholesterol/HDL Ratio 6.7 Thyroid Stimulating Hormone (TSH) 2.051uIU/mL (0.358-3.74) White Blood Count 10.5x10^3/uL (4.0-11.0) Red Blood Count 4.26x10^6/uL (3.50-5.40) Hemoglobin 14.3g/dL (12.0-15.5) Hematocrit 41.0% (36.0-47.0) Mean Corpuscular Volume 96fL (79-100) Mean Corpuscular Hemoglobin 34pg (25-35) Mean Corpuscular Hemoglobin Concent 35g/dL (31-37) Red Cell Distribution Width 13.8% (11.5-14.5) Platelet Count 390x10^3/uL (140-400) Neutrophils (%) (Auto) 64% (31-73) Lymphocytes (%) (Auto) 28% (24-48) Monocytes (%) (Auto) 7% (0-9) Eosinophils (%) (Auto) 1% (0-3) Basophils (%) (Auto) 1% (0-3) Neutrophils # (Auto) 6.7x10^3uL (1.8-7.7) Lymphocytes # (Auto) 2.9x10^3/uL (1.0-4.8) Monocytes # (Auto) 0.7x10^3/uL (0.0-1.1) Eosinophils # (Auto) 0.1x10^3/uL (0.0-0.7) Basophils # (Auto) 0.1x10^3/uL (0.0-0.2) Physical Exam HEENT: Neck Supple W Full Motion Chest: Symmetric LUNGS: Clear to Auscultation Heart: S1S2, RRR (SR no significant ectopies) Abdomen: Soft N/T Extremities: No Edema, No Calf Tenderness Neurology: alert, oriented, follow commands Other Exams right wrist arteriotomy site intact, no swelling, erythema, neurovascular status intact. Assessment Assessment 1. Infero-posterior STEMI: S/P PCI/BMS to LCx, normal EF. 2. HLP 3. Tobaccoism/COPD 4. HRT: not recommended with current smoking. Defer to PCP Recommendations 1. CM/SW for referral for medicare eligibility. Accdg to pt does have medicaid. Will confirm. 2. Significant discussion with lifestyle modifications, treatment compliance, and smoking cessation 3. Lipitor 4. DAPT. Indefinite ASA 81 mg (2 month samples given). 1 month sample of brilinta to be provided. 5. Will transition to plavix post brilinta. 6. Cardiac rehab referred but would not be able to afford. 7. Start on metoprolol low dose. Reeval for ACEi (low BP) as an outpt if BP trends are adequate. 8. Anticipate DC tomorrow. Encouraged follow up in office in 4-6 weeks AMIRAH SMITH APRN June 08, 2016 12:59
--- NOTE | 2016-06-08 13:01 | PDOC ---
PROGRESS NOTES Chief Complaint Chief Complaint Chest pain, SOA History of Present Illness History of Present Illness Pt was in bed and doing well s/p STEMI and PCI No acute complaints Discussed with nurse possibility of discharge but pt does not have insurance and they are working on medicare eligibility Vitals Vitals Vital Signs Date Time Temp Pulse Resp B/P Pulse Ox O2 Delivery O2 Flow Rate FiO2 06/08/16 11:01 102 22 109/55 98 Nasal Cannula 2.0 06/08/16 08:21 98.0 98.0 Physical Exam General: Alert, Oriented X3 Heart: Regular rate, No murmurs Lungs: Clear, Other (NO wheezing, crackles) Abdomen: Normal bowel sounds, No tenderness Extremities: No clubbing, No cyanosis Skin: No rashes, No significant lesion Labs LABS Laboratory Tests Test 06/08/16 05:05 06/08/16 05:10 Sodium Level 138mmol/L (136-145) Potassium Level 4.5mmol/L (3.5-5.1) Chloride Level 103mmol/L (98-107) Carbon Dioxide Level 30mmol/L (21-32) Anion Gap 5 (6-14) Blood Urea Nitrogen 11mg/dL (7-20) Creatinine 0.8mg/dL (0.6-1.0) Estimated GFR (Cockcroft-Gault) 73.2 BUN/Creatinine Ratio 14 (6-20) Glucose Level 111mg/dL (70-99) Calcium Level 8.1mg/dL (8.5-10.1) Total Bilirubin 0.3mg/dL (0.2-1.0) Aspartate Amino Transf (AST/SGOT) 184U/L (15-37) Alanine Aminotransferase (ALT/SGPT) 40U/L (14-59) Alkaline Phosphatase 99U/L (46-116) Total Protein 6.3g/dL (6.4-8.2) Albumin 2.8g/dL (3.4-5.0) Albumin/Globulin Ratio 0.8 (1.0-1.7) Triglycerides Level 192mg/dL (0-150) Cholesterol Level 276mg/dL (0-200) LDL Cholesterol, Calculated 197mg/dL (0-100) VLDL Cholesterol, Calculated 38mg/dL (0-40) Non-HDL Cholesterol Calculated 235mg/dL (0-129) HDL Cholesterol 41mg/dL (40-60) Cholesterol/HDL Ratio 6.7 Thyroid Stimulating Hormone (TSH) 2.051uIU/mL (0.358-3.74) White Blood Count 10.5x10^3/uL (4.0-11.0) Red Blood Count 4.26x10^6/uL (3.50-5.40) Hemoglobin 14.3g/dL (12.0-15.5) Hematocrit 41.0% (36.0-47.0) Mean Corpuscular Volume 96fL (79-100) Mean Corpuscular Hemoglobin 34pg (25-35) Mean Corpuscular Hemoglobin Concent 35g/dL (31-37) Red Cell Distribution Width 13.8% (11.5-14.5) Platelet Count 390x10^3/uL (140-400) Neutrophils (%) (Auto) 64% (31-73) Lymphocytes (%) (Auto) 28% (24-48) Monocytes (%) (Auto) 7% (0-9) Eosinophils (%) (Auto) 1% (0-3) Basophils (%) (Auto) 1% (0-3) Neutrophils # (Auto) 6.7x10^3uL (1.8-7.7) Lymphocytes # (Auto) 2.9x10^3/uL (1.0-4.8) Monocytes # (Auto) 0.7x10^3/uL (0.0-1.1) Eosinophils # (Auto) 0.1x10^3/uL (0.0-0.7) Basophils # (Auto) 0.1x10^3/uL (0.0-0.2) Review of Systems Review of Systems Denies chest pain Denies SOA Denies N/V/D Assessment and Plan Assessmemt and Plan Problems Medical Problems: (1) STEMI (ST elevation myocardial infarction) Status: Acute Assessment Infero-posterior STEMI: S/P PCI/BMS to LCx, normal EF. HLP Tobaccoism COPD Hormone replacement therapy Plan CM/SW for referral for medicare eligibility Indefinite ASA 81 mg Effient for 1 month and then consider changing to plavix d/t financial considerations Start lipitor Start metoprolol and consider ACEI if BPs remain elevated - they are stable currently Lifestyle modifications - smoking cessation and dietary improvement Cardiac rehab Anticipate DC tomorrow if cardio oks Check labs in am Consult PT/OT Problems: Comment Review of Relevant I have reviewed the following items hunter (where applicable) has been applied. Labs Laboratory Tests Test 06/07/16 12:05 06/08/16 05:05 06/08/16 05:10 Nasal Screen MRSA (PCR) Negative (Negative) Sodium Level 138mmol/L (136-145) Potassium Level 4.5mmol/L (3.5-5.1) Chloride Level 103mmol/L (98-107) Carbon Dioxide Level 30mmol/L (21-32) Anion Gap 5 (6-14) Blood Urea Nitrogen 11mg/dL (7-20) Creatinine 0.8mg/dL (0.6-1.0) Estimated GFR (Cockcroft-Gault) 73.2 BUN/Creatinine Ratio 14 (6-20) Glucose Level 111mg/dL (70-99) Calcium Level 8.1mg/dL (8.5-10.1) Total Bilirubin 0.3mg/dL (0.2-1.0) Aspartate Amino Transf (AST/SGOT) 184U/L (15-37) Alanine Aminotransferase (ALT/SGPT) 40U/L (14-59) Alkaline Phosphatase 99U/L (46-116) Total Protein 6.3g/dL (6.4-8.2) Albumin 2.8g/dL (3.4-5.0) Albumin/Globulin Ratio 0.8 (1.0-1.7) Triglycerides Level 192mg/dL (0-150) Cholesterol Level 276mg/dL (0-200) LDL Cholesterol, Calculated 197mg/dL (0-100) VLDL Cholesterol, Calculated 38mg/dL (0-40) Non-HDL Cholesterol Calculated 235mg/dL (0-129) HDL Cholesterol 41mg/dL (40-60) Cholesterol/HDL Ratio 6.7 Thyroid Stimulating Hormone (TSH) 2.051uIU/mL (0.358-3.74) White Blood Count 10.5x10^3/uL (4.0-11.0) Red Blood Count 4.26x10^6/uL (3.50-5.40) Hemoglobin 14.3g/dL (12.0-15.5) Hematocrit 41.0% (36.0-47.0) Mean Corpuscular Volume 96fL (79-100) Mean Corpuscular Hemoglobin 34pg (25-35) Mean Corpuscular Hemoglobin Concent 35g/dL (31-37) Red Cell Distribution Width 13.8% (11.5-14.5) Platelet Count 390x10^3/uL (140-400) Neutrophils (%) (Auto) 64% (31-73) Lymphocytes (%) (Auto) 28% (24-48) Monocytes (%) (Auto) 7% (0-9) Eosinophils (%) (Auto) 1% (0-3) Basophils (%) (Auto) 1% (0-3) Neutrophils # (Auto) 6.7x10^3uL (1.8-7.7) Lymphocytes # (Auto) 2.9x10^3/uL (1.0-4.8) Monocytes # (Auto) 0.7x10^3/uL (0.0-1.1) Eosinophils # (Auto) 0.1x10^3/uL (0.0-0.7) Basophils # (Auto) 0.1x10^3/uL (0.0-0.2) Laboratory Tests Test 06/08/16 05:05 06/08/16 05:10 Sodium Level 138mmol/L (136-145) Potassium Level 4.5mmol/L (3.5-5.1) Chloride Level 103mmol/L (98-107) Carbon Dioxide Level 30mmol/L (21-32) Anion Gap 5 (6-14) Blood Urea Nitrogen 11mg/dL (7-20) Creatinine 0.8mg/dL (0.6-1.0) Estimated GFR (Cockcroft-Gault) 73.2 BUN/Creatinine Ratio 14 (6-20) Glucose Level 111mg/dL (70-99) Calcium Level 8.1mg/dL (8.5-10.1) Total Bilirubin 0.3mg/dL (0.2-1.0) Aspartate Amino Transf (AST/SGOT) 184U/L (15-37) Alanine Aminotransferase (ALT/SGPT) 40U/L (14-59) Alkaline Phosphatase 99U/L (46-116) Total Protein 6.3g/dL (6.4-8.2) Albumin 2.8g/dL (3.4-5.0) Albumin/Globulin Ratio 0.8 (1.0-1.7) Triglycerides Level 192mg/dL (0-150) Cholesterol Level 276mg/dL (0-200) LDL Cholesterol, Calculated 197mg/dL (0-100) VLDL Cholesterol, Calculated 38mg/dL (0-40) Non-HDL Cholesterol Calculated 235mg/dL (0-129) HDL Cholesterol 41mg/dL (40-60) Cholesterol/HDL Ratio 6.7 Thyroid Stimulating Hormone (TSH) 2.051uIU/mL (0.358-3.74) White Blood Count 10.5x10^3/uL (4.0-11.0) Red Blood Count 4.26x10^6/uL (3.50-5.40) Hemoglobin 14.3g/dL (12.0-15.5) Hematocrit 41.0% (36.0-47.0) Mean Corpuscular Volume 96fL (79-100) Mean Corpuscular Hemoglobin 34pg (25-35) Mean Corpuscular Hemoglobin Concent 35g/dL (31-37) Red Cell Distribution Width 13.8% (11.5-14.5) Platelet Count 390x10^3/uL (140-400) Neutrophils (%) (Auto) 64% (31-73) Lymphocytes (%) (Auto) 28% (24-48) Monocytes (%) (Auto) 7% (0-9) Eosinophils (%) (Auto) 1% (0-3) Basophils (%) (Auto) 1% (0-3) Neutrophils # (Auto) 6.7x10^3uL (1.8-7.7) Lymphocytes # (Auto) 2.9x10^3/uL (1.0-4.8) Monocytes # (Auto) 0.7x10^3/uL (0.0-1.1) Eosinophils # (Auto) 0.1x10^3/uL (0.0-0.7) Basophils # (Auto) 0.1x10^3/uL (0.0-0.2) Medications Current Medications Nitroglycerin (Nitroglycerin) 400 mcg 1X ONCE IART Last administered on t 11:45; Start 06/07/16 at 11:45; Stop 06/07/16 at 11:46; Status DC Verapamil HCl (Verapamil) 2.5 mg 1X ONCE IART Last administered on 06/07/16 11 :45; Start 06/07/16 at 11:45; Stop 06/07/16 at 11:46; Status DC Heparin Sodium (Porcine) (Heparin Sodium) 2,500 unit 1X ONCE IART Last administered on 06/07/16 11:45; Start 06/07/16 at 11:45; Stop 06/07/16 at 11:46; Status DC Heparin Sodium/ Sodium Chloride 1,000 unit 1X ONCE IART Last administered on 11:45; Start 06/07/16 at 11:45; Stop 06/07/16 at 11:46; Status DC Midazolam HCl (Versed) 1 mg 1X ONCE IV Last administered on 06/07/16 11:45; Start 06/07/16 at 11:45; Stop 06/07/16 at 11:46; Status DC Fentanyl Citrate (Fentanyl 2ml Vial) 25 mcg 1X ONCE IV Last administered on 11:45; Start 06/07/16 at 11:45; Stop 06/07/16 at 11:46; Status DC Iohexol (Omnipaque 300 Mg/ml) 100 ml 1X ONCE IART Last administered on 11:45; Start 06/07/16 at 11:45; Stop 06/07/16 at 11:46; Status DC Prasugrel (Effient) 60 mg 1X ONCE PO Last administered on 06/07/16 11:45; Start 06/07/16 at 11:45; Stop 06/07/16 at 11:46; Status DC Heparin Sodium (Porcine) (Heparin Sodium) 5,000 unit 1X ONCE IV Last administered on 06/07/16 11:45; Start 06/07/16 at 11:45; Stop 06/07/16 at 11:46; Status DC Lidocaine HCl 20 ml 20 ml 1X ONCE IJ Last administered on 06/07/16 11:45; Start 06/07/16 at 11:45; Stop 06/07/16 at 11:46; Status DC Tirofiban/Sodium Chloride (Aggrastat 12.5 Mg/250 ml Premix) 250 ml @ 0 mls/hr CONT PRN IV PER PROTOCOL Last administered on 06/07/16 11:13; Start 06/07/16 at 11:45; Stop 06/08/16 at 05:44; Status DC Ondansetron HCl (Zofran) 4 mg 1X ONCE IV Last administered on 06/07/16 11:45; Start 06/07/16 at 11:45; Stop 06/07/16 at 11:46; Status DC Info (Do NOT chart on this entry -- for MONITORING) 1 each PRN DAILY PRN MC SEE COMMENTS; Start 06/07/16 at 11:45; Stop 06/09/16 at 11:44 Alprazolam (Xanax) 1 mg BID PO Last administered on 06/08/16 08:20; Start at 21:00 Escitalopram Oxalate (Lexapro) 20 mg QHS PO Last administered on 06/07/16 20:54 ; Start 06/07/16 at 21:00 Quetiapine Fumarate (SEROquel) 50 mg QHS PO Last administered on 06/07/16 20:55 ; Start 06/07/16 at 21:00 Aspirin (Children'S Aspirin) 81 mg DAILYWBKFT PO Last administered on 06/08/16 08:20; Start 06/08/16 at 08:00 Ondansetron HCl (Zofran) 4 mg PRN Q6HRS PRN IV NAUSEA/VOMITING; Start 06/07/16 at 15:15 Morphine Sulfate 1 mg PRN Q1HR PRN IV PAIN; Start 06/07/16 at 15:15 Acetaminophen/ Hydrocodone Bitart (Lortab 5/325) 1 tab PRN Q4HRS PRN PO MILD PAIN; Start 06/07/16 at 15:15 Acetaminophen (Tylenol) 650 mg PRN Q6HRS PRN PO Headaches, Temp > 101.5F; Start 06/07/16 at 15:15 Albuterol Sulfate (Ventolin Neb Soln) 2.5 mg PRN Q4HRS PRN NEB SHORTNESS OF BREATH; Start 06/07/16 at 15:15 Multi-Ingredient Mouthwash/Gargle (Gi Cocktail Single Dose) 15 ml PRN 1X PRN SWSW CHEST PAIN Last administered on 06/07/16 17:55; Start 06/07/16 at 17:15 Tirofiban/Sodium Chloride (Aggrastat 5 Mg/ 100 ml Premix) 5 mg STK-MED ONCE IV ; Start 06/07/16 at 11:00; Stop 06/08/16 at 08:54; Status DC Prasugrel (Effient) 10 mg DAILYWBKFT PO Last administered on 06/08/16t 09:21; Start 06/08/16 at 09:00 Atorvastatin Calcium (Lipitor) 80 mg QHS PO ; Start 06/08/16 at 21:00 Metoprolol Succinate (Toprol Xl) 12.5 mg DAILY PO Last administered on t 09:21; Start 06/08/16 at 09:00; Stop 06/08/16 at 12:51; Status DC Iohexol 100 ml 100 ml STK-MED ONCE .ROUTE ; Start 06/07/16 at 10:17; Stop at 09:10; Status DC Heparin Sodium/ Sodium Chloride 1,000 ml @ As Directed STK-MED ONCE .ROUTE ; Start 06/07/16 at 10:17; Stop 06/08/16 at 09:10; Status DC Lidocaine HCl 20 ml STK-MED ONCE .ROUTE ; Start 06/07/16 at 10:17; Stop 06/08/16 at 09:10; Status DC Nitroglycerin (Nitroglycerin) 200 mcg STK-MED ONCE .ROUTE ; Start 06/07/16 at 10: 17; Stop 06/08/16 at 09:10; Status DC Atropine Sulfate 0.5 mg 0.5 mg STK-MED ONCE .ROUTE ; Start 06/07/16 at 10:18; Stop 06/08/16 at 09:10; Status DC Dopamine HCl/ Dextrose 250 ml @ As Directed STK-MED ONCE IV ; Start 06/07/16 at 10:18; Stop 06/08/16 at 09:10; Status DC Verapamil HCl (Verapamil) 5 mg STK-MED ONCE .ROUTE ; Start 06/07/16 at 10:18; Stop 06/08/16 at 09:11; Status DC Heparin Sodium (Porcine) (Heparin Sodium) 10,000 unit STK-MED ONCE .ROUTE ; Start 06/07/16 at 10:18; Stop 06/08/16 at 09:11; Status DC Fentanyl Citrate (Fentanyl 2ml Vial) 100 mcg STK-MED ONCE .ROUTE ; Start at 10:18; Stop 06/08/16 at 09:11; Status DC Midazolam HCl 2 mg 2 mg STK-MED ONCE .ROUTE ; Start 06/07/16 at 10:18; Stop at 09:11; Status DC Tirofiban/Sodium Chloride (Aggrastat 5 Mg/ 100 ml Premix) 100 ml @ As Directed STK-MED ONCE IV ; Start 06/07/16 at 11:08; Stop 06/08/16 at 09:11; Status DC Ondansetron HCl (Zofran) 4 mg STK-MED ONCE .ROUTE ; Start 06/07/16 at 11:29; Stop 06/08/16 at 09:11; Status DC Prasugrel (Effient) 10 mg STK-MED ONCE .ROUTE ; Start 06/07/16 at 11:42; Stop 06/08/16 at 09:11; Status DC Metoprolol Tartrate (Lopressor) 12.5 mg BID PO ; Start 06/08/16 at 21:00 Active Scripts Active Reported Lexapro (Escitalopram Oxalate) 20 Mg Tablet 1 Tab PO HS Seroquel (Quetiapine Fumarate) 50 Mg Tablet 1 Tab PO QHS Isosorbide Mononitrate Er (Isosorbide Mononitrate) 60 Mg Tab.er.24h 0.5 Tab PO BID Xanax Xr (Alprazolam) 2 Mg Tab.er.24h 2 Mg PO DAILY Estradiol 0.5 Mg Tablet 2 Tab PO DAILY Vitals/I & O Vital Sign - Last 24 Hours 06/07/16 06/07/16 06/07/16 06/07/16 13:00 13:05 13:15 13:30 Pulse 90 92 78 Resp 18 20 18 B/P 98/59 80/56 90/58 Pulse Ox 95 93 93 O2 Delivery Nasal Cannula Nasal Cannula Nasal Cannula Nasal Cannula O2 Flow Rate 4.0 4.0 4.0 4.0 06/07/16 06/07/16 06/07/16 06/07/16 13:45 14:00 14:30 15:21 Pulse 84 80 70 79 Resp 22 22 20 18 B/P 104/59 106/49 97/58 99/48 Pulse Ox 95 96 97 96 O2 Delivery Nasal Cannula Nasal Cannula Nasal Cannula Nasal Cannula O2 Flow Rate 4.0 4.0 4.0 4.0 06/07/16 06/07/16 06/07/16 06/07/16 15:38 16:03 17:20 18:36 Temp 98.1 98.1 Pulse 92 92 96 Resp 20 20 16 B/P 119/69 125/65 105/56 Pulse Ox 98 97 98 O2 Delivery Nasal Cannula Nasal Cannula Nasal Cannula Nasal Cannula O2 Flow Rate 4.0 4.0 4.0 4.0 06/07/16 06/07/16 06/07/16 06/07/16 19:00 19:52 20:04 20:23 Temp 98.1 98.1 Pulse 96 89 Resp 20 18 B/P 100/56 121/69 Pulse Ox 99 95 96 O2 Delivery Nasal Cannula Nasal Cannula Nasal Cannula Nasal Cannula O2 Flow Rate 2.0 2.0 2.0 2.0 06/07/16 06/07/16 06/08/16 06/08/16 22:14 23:11 00:09 00:11 Temp 98.3 98.3 Pulse 94 85 61 Resp 20 20 18 B/P 119/62 114/79 109/57 Pulse Ox 94 94 100 O2 Delivery Nasal Cannula Nasal Cannula Nasal Cannula Nasal Cannula O2 Flow Rate 2.0 2.0 2.0 2.0 06/08/16 06/08/16 06/08/16 06/08/16 01:00 02:00 03:00 04:00 Temp 98.0 98.0 Pulse 81 80 79 85 Resp 20 20 18 20 B/P 128/85 143/79 96/50 Pulse Ox 91 94 95 95 O2 Delivery Nasal Cannula Nasal Cannula Nasal Cannula Nasal Cannula O2 Flow Rate 3.0 2.0 2.0 2.0 06/08/16 06/08/16 06/08/16 06/08/16 04:00 05:12 06:04 07:25 Pulse 84 76 107 Resp 18 20 16 B/P 109/56 130/69 119/65 Pulse Ox 95 94 97 O2 Delivery Nasal Cannula Nasal Cannula Nasal Cannula Nasal Cannula O2 Flow Rate 2.0 2.0 2.0 2.0 06/08/16 06/08/16 06/08/16 06/08/16 07:38 08:21 09:21 09:22 Temp 98.0 98.0 Pulse 87 81 86 Resp 20 16 B/P 111/62 125/85 125/85 Pulse Ox 98 96 O2 Delivery Nasal Cannula Nasal Cannula Nasal Cannula O2 Flow Rate 2.0 2.0 2.0 06/08/16 06/08/16 10:06 11:01 Pulse 80 102 Resp 20 22 B/P 131/70 109/55 Pulse Ox 96 98 O2 Delivery Nasal Cannula Nasal Cannula O2 Flow Rate 2.0 2.0 Intake and Output 06/07/16 06/07/16 06/08/16 15:00 23:00 07:00 Intake Total 150 ml 1209 ml 250 ml Output Total 515 ml 965 ml 600 ml Balance -365 ml 244 ml -350 ml JA ARAIZA III DO June 08, 2016 13:01
[2016-06-08] MEDS ORDERED: ATOR40TA PO (14:51)
[2016-06-08] MEDS ORDERED: PRAS10TA9 PO (14:51)
[2016-06-08] MEDS ORDERED: ASPI-482 PO (14:51)
[2016-06-08] MEDS ORDERED: METO25TA4 PO (14:51)
[2016-06-08] MEDS ORDERED: TICA90TA PO (15:18)
[2016-06-08] MEDS ORDERED: ATORVASTATIN CALCIUM 40 MG TABLET. PO SCH ×2 (21:00)
[2016-06-08] MEDS ORDERED: METOPROLOL TART IMMED RELEASE 25 MG TABLET. PO SCH (21:00)
[2016-06-09] MEDS ORDERED: TICAGRELOR 90 MG TABLET. PO SCH (09:00)
--- NOTE | 2016-06-11 21:22 | DS ---
DATE OF DISCHARGE: 06/08/2016 ADMISSION DIAGNOSIS: Acute myocardial infarction. DISCHARGE DIAGNOSIS: Post-procedure cardiac stent placed to the obtuse marginal. HOSPITAL COURSE: The patient is a pleasant 60-year-old female who presented with a slightly elevated troponin and chest pain. She was admitted the lab tech. She got a stent to the obtuse marginal. Post-procedure, she did well. We discharged to home. DISPOSITION: Home. ACTIVITY: As tolerated. DIET: Low sodium. MEDICATIONS: Please see the MRAD. TOTAL TIME: 32 minutes. JA ARAIZA DO DR: TAE/graham JOB#: [id number] / [id number]
== END 2016-06-08 16:00 | disposition home or self-care (01) | DRG 249 ==
LOC: 1 WEST ICU 10:51
PROVIDERS: ADMIT Internal Medicine; ATTEND Internal Medicine
PROC: 4A023N7 Measurement of Cardiac Sampling and Pressure, Left Heart, Percutaneous Approach (ICD-10-PCS; principal; 2016-06-07)
PROC: 02703DZ Dilation of Coronary Artery, One Artery with Intraluminal Device, Percutaneous Approach (ICD-10-PCS; 2016-06-07)
PROC: 02703ZZ Dilation of Coronary Artery, One Artery, Percutaneous Approach (ICD-10-PCS; 2016-06-07)
PROC: B2151ZZ Fluoroscopy of Left Heart using Low Osmolar Contrast (ICD-10-PCS; 2016-06-07)
DX: I21.11 ST elevation (STEMI) myocardial infarction involving right coronary artery (principal); E44.1 Mild protein-calorie malnutrition; E78.5 Hyperlipidemia, unspecified; F17.210 Nicotine dependence, cigarettes, uncomplicated; J44.9 Chronic obstructive pulmonary disease, unspecified; F32.9 Major depressive disorder, single episode, unspecified; F41.9 Anxiety disorder, unspecified; I25.2 Old myocardial infarction; Z79.890 Hormone replacement therapy; Z98.61 Coronary angioplasty status
CPT/HCPCS: 36415; 80053; 80061; 84443; 85027; 87641; 92941; 93005; 93458; 94250; C1725; C1769; C1877; C1887; C1892; J2250; J2405; J3010; J3490; Q9967; J3246

== ENCOUNTER → 2016-08-12 | Outpatient (CLI) | payer OTHER ==
[2016-06-08 11:01] VITALS: BP 109/55
[~2016-08-12] MED LIST changes: +ALPR2TAB PO; +ASPI-482 PO; +ATOR40TA PO; -ATROPINE 0.5 MG/5 ML DISP.SYRIN. ONE; +ESTR0.5T PO; -HEPARIN for IV BOLUS 10,000 UNIT/10 ML VIAL. ONE; -IOHEXOL 300 MG/ML 100ML VIAL. ONE; +ISOS60TA2 PO; +LEXAPRO20 MG PO; -LIDOCAINE 2% 20 ML VIAL. ONE; +METO25TA4 PO; -MIDAZOLAM HCL/PF 2 MG/2 ML VIAL. ONE; -NITROGLYCERIN 200 MCG/2 ML SYRINGE FOR CATH/VASC LAB. ONE; +PRAS10TA9 PO; +QUET50TA5 PO; +TICA90TA PO; -VERAPAMIL 5 MG/2 ML VIAL. ONE; -fentaNYL PF VIAL 100 MCG/2 ML VIAL ONE
--- NOTE | 2016-08-12 17:04 | CARD ---
APPROVED REPORT EXAM: Two-dimensional and M-mode echocardiogram with Doppler and color Doppler. Other Information Quality : GoodHR: 62bpm Rhythm : NSR INDICATION Cardiac Disease: CAD STEMI RISK FACTORS Hypertension Obesity Smoking 2D DIMENSIONS RVDd2.9 (2.9-3.5cm)Left Atrium(2D)2.7 (1.6-4.0cm) IVSd0.8 (0.7-1.1cm)Aortic Root(2D)3.0 (2.0-3.7cm) LVDd4.7 (3.9-5.9cm)LVOT Diameter2.1 (1.8-2.4cm) PWd1.0 (0.7-1.1cm)LVDs3.2 (2.5-4.0cm) FS (%) 31.6 %SV60.8 ml LVEF(%)59.6 (>50%) Aortic Valve AoV Peak Sergio.119.8cm/sAoV VTI27.5cm AO Peak GR.5.7mmHgLVOT Peak Sergio.102.5cm/s AO Mean GR.3mmHgAVA (VMAX)3.04cm2 Mitral Valve MV E Lwioybqi14.3cm/sMV E Peak Gr.3mmHg MV DECEL [id number] A Sztbezzk93.4cm/s MV E Mean Gr.1mmHgE/A Ratio0.8 MV A [id number] Pulmonary Valve PV Peak Qosuqubr13.4cm/s Tricuspid Valve TR P. [id number]/sTR Peak Gr.27mmHg Pulmonary Vein S1 Kaeqqwfi73.3cm/sD2 Eaudgiem52.2cm/s PVa [id number] LEFT VENTRICLE The left ventricle is normal size. There is normal left ventricular wall thickness. The Ejection Frac tion is 55-60%. Basal inferior and posterior wall hypokinesis. Transmitral Doppler flow pattern is Gr price I-abnormal relaxation pattern. No left ventricle thrombus noted on this study. RIGHT VENTRICLE The right ventricle is normal size. There is normal right ventricular wall thickness. The right ventr icular systolic function is normal. ATRIA The left atrium size is normal. The right atrium size is normal. The interatrial septum is intact wit h no evidence for an atrial septal defect or patent foramen ovale as noted on 2-D or Doppler imaging. AORTIC VALVE The aortic valve is not well visualized but appears mildly calcified and opens well. The aortic valve is trileaflet. Doppler and Color Flow revealed no significant aortic regurgitation. There is no sign ificant aortic valvular stenosis. MITRAL VALVE Mitral annular calcification is mild. The mitral valve leaflets are thickened. There is no evidence o f mitral valve prolapse. There is no mitral valve stenosis. Doppler and Color Flow revealed mild mitr al regurgitation. TRICUSPID VALVE Doppler and Color Flow revealed trace tricuspid regurgitation. The pulmonary artery systolic pressure is estimated at 28 mmHg. There is no pulmonary hypertension. PULMONIC VALVE The pulmonary valve is not well visualized but appears to opens well. Doppler and Color Flow revealed no pulmonic valvular regurgitation. There is no pulmonic valvular stenosis by spectral Doppler. GREAT VESSELS The aortic root is normal in size. The ascending aorta is normal in size. The pulmonary artery is nor mal. The IVC is normal in size and collapses >50% with inspiration. PERICARDIAL EFFUSION There is no evidence of significant pericardial effusion. Critical Notification Critical Value: No <Conclusion> Basal inferior and posterior wall hypokinesis. The Ejection Fraction is 55-60%. Transmitral Doppler flow pattern is Grade I-abnormal relaxation pattern. Mild mitral regurgitation. Trace tricuspid regurgitation. The pulmonary artery systolic pressure is estimated at 28 mmHg. There is no evidence of significant pericardial effusion.
== END | disposition home or self-care (01) ==
LOC: ECHO 09:42
PROVIDERS: ATTEND Internal Medicine Cardiovascular Disease
DX: I08.1 Rheumatic disorders of both mitral and tricuspid valves (principal); I25.10 Atherosclerotic heart disease of native coronary artery without angina pectoris; I10 Essential (primary) hypertension; I21.3 ST elevation (STEMI) myocardial infarction of unspecified site; E66.9 Obesity, unspecified
CPT/HCPCS: 93306

== ENCOUNTER 2018-07-04 07:56 | Outpatient (CLI) | payer OTHER ==
[~2018-07-04 07:56] MED LIST changes: +IOHEXOL 180 MG/ML 10 ML VIAL. IJ ONE
[2018-07-04 09:40] VITALS: BP 96/57
[2018-07-04 10:10] VITALS: BP 106/56
--- NOTE | 2018-07-04 10:46 | NUR ---
DISCHARGE NOTES; Pt rested about 1 hr. ate crackers and water, Reviewed d/c papers. pt and her friend verbalized understanding. Pt walked out by foot and was accompanied by her friend.
--- NOTE | 2018-07-04 12:39 | RAD ---
Lumbar myelogram, 07/04/2018: History: Lumbar spondylolisthesis, bilateral leg pain and numbness Under local anesthesia, aseptic conditions and fluoroscopic guidance a lumbar puncture was performed at the L3-4 level utilizing a 25-gauge Gisella spinal needle. Good clear CSF flow was obtained following which 14 cc of Omnipaque 180 was injected into the thecal sac. The spinal needle was then removed and hemostasis obtained. Appropriate digital imaging of the lumbar spine was then performed. 4.2 minutes of fluoroscopy time was utilized. 12 fluoroscopic spot images were recorded. The patient tolerated the procedure well and was sent to CT in good condition. The following findings were delineated on the myelogram: 1. Preliminary AP and lateral upright lumbar spine radiographs demonstrate partial sacralization of the transverse processes at L5. There is moderate disc space narrowing and mild marginal spurring throughout the lumbar spine. There is mild anterolisthesis at L2-3 and L3-4. At L3-4 there is asymmetric narrowing of the anterior disc space related to the anterolisthesis. 2. There are moderate anterior extradural defects at L2-3 and L3-4. 3. The mild anterolisthesis at L2-3 and L3-4 does not demonstrate significant instability with upright flexion and extension. 4. There is symmetric opacification of the nerve root sleeves in the lower lumbar spine. CT of the lumbar spine-post myelogram, 07/04/2018: Multidetector CT imaging was performed with multiplanar reconstructions produced. The following findings are delineated: 1. There has been a previous posterolateral spinal fusion with solid bony bridging from L4 through S1. 2. There is minimal posterior annular bulging at L1-2. The central spinal canal and neural foramina are well maintained. 3. At L2-3 there is a vacuum disc phenomena with moderate broad-based posterior disc protrusion. There are moderate degenerative changes involving the facet joints there is a slight associated anterolisthesis in the supine position for the CT scans. The thecal sac narrows down to an AP diameter of 8-9 mm at the midline. There is only mild inferior foraminal narrowing bilaterally. 4. At L3-4 there is a vacuum disc phenomena. There are extensive degenerative changes involving the facet joints with vacuum phenomena at the joints and posterior ligamentous thickening. There is very little if any anterolisthesis at L3-4 in the supine position. The thecal sac measures 10 mm in AP diameter at the midline. There is only minimal inferior foraminal narrowing. 5. At L4-5 there is no significant posterior disc bulge or protrusion. The central spinal canal and neural foramina are widely patent. 6. At L5-S1 there is mild posterior disc bulging and marginal spurring. This abuts the S1 nerve root sleeves which are widely patent. The central spinal canal and neural foramina are well preserved. IMPRESSION: 1. Previous posterior spinal fusion from L4 through S1 with no significant central spinal or foraminal stenosis through those levels. 2. Mild central spinal stenosis at L2-3 due to a combination of mild anterolisthesis secondary to facet joint arthropathy and moderate broad-based posterior disc protrusion. 3. Extensive facet joint arthropathy at L3-4 with mild associated anterolisthesis and only borderline narrowing of the central spinal canal. 4. The mild anterolisthesis at L2-3 and L3-4 is more prominent on the upright radiographic views than on the supine CT imaging. PQRS Compliance Statement: One or more of the following individualized dose reduction techniques were utilized for this examination: 1. Automated exposure control 2. Adjustment of the mA and/or kV according to patient size 3. Use of iterative reconstruction technique
== END 2018-07-04 10:35 | disposition home or self-care (01) ==
LOC: RAD 07:56
PROVIDERS: ATTEND Neurological Surgery
DX: M43.16 Spondylolisthesis, lumbar region (principal); M48.061 Spinal stenosis, lumbar region without neurogenic claudication; M46.07 Spinal enthesopathy, lumbosacral region; G54.4 Lumbosacral root disorders, not elsewhere classified
CPT/HCPCS: 72132; 72265; Q9965